=== PATIENT | female | born 2000 | race African-American/Black ===

== ENCOUNTER → 2022-03-03 12:48 | Outpatient (CLI) | payer OTHER, SELFPAY ==
--- NOTE | ~2022-03-03 | US_ITS ---
EXAMINATION: US pelvic complete DATE: 03/03/2022 13:07 INDICATION: Abnormal uterine bleeding TECHNIQUE: Multiple transabdominal sonographic images of the pelvis were obtained. COMPARISON: None. FINDINGS: The uterus measures 8.2 x 4.2 x 4.8 cm. The endometrial complex measures 5 mm. The right ov shara measures 2.6 x 1.9 x 1.6 cm. The left ovary measures 5.8 x 3.1 x 4.3 cm and contains a 3.4 cm cys t. There is normal vascular flow in the ovaries. There is no free fluid in the pelvis. IMPRESSION: 1. No sonographic correlate for the patient's symptoms. Reviewed, dictated and finalized at location L. R INSTALLER
== END ==
PROVIDERS: PCP Nurse Practitioner; Visit Provider Nurse Practitioner
DX: N93.8 Other specified abnormal uterine and vaginal bleeding (principal)
CPT/HCPCS: 76856

== ENCOUNTER → 2022-04-14 10:37 | Outpatient (CLI) | payer OTHER, SELFPAY ==
--- NOTE | ~2022-04-14 | US_ITS ---
EXAMINATION: US pelvic complete DATE: 04/14/2022 11:01 INDICATION: Follow-up left ovarian cysts. Comparison:Ultrasound dated 03/03/2022 TECHNIQUE: Multiple transabdominal sonographic images of the pelvis performed. FINDINGS: The uterus measures 7 x 4.1 x 5.5 cm. The endometrial complex measures 5 mm. The right ovary measures 2.6 x 1.7 x 2.3 cm and the left ovary measures 4.7 x 2.1 x 3.6 cm. There ar e small follicles in each ovary. Normal doppler signal in both ovaries. There is no free fluid in the pelvis. There are no abnormal masses seen on either side. IMPRESSION: 1. Unremarkable pelvic ultrasound. Interval resolution of left ovarian cyst. Reviewed, dictated and finalized at location L. EMS SUPPORT OFFICER
== END ==
PROVIDERS: PCP Obstetrics & Gynecology Gynecology; Visit Provider Obstetrics & Gynecology Gynecology
DX: N83.202 Unspecified ovarian cyst, left side (principal)
CPT/HCPCS: 76856